=== PATIENT | female | born 1970 | race Caucasian/White ===

== ENCOUNTER 2019-03-28 10:41 | Emergency (ER) | payer BC, OTHER ==
[2019-03-28 11:32] LABS: Absolute Lymphocytes (CBC) 1.3 K/uL (0.7-4.9); Absolute Monocytes 0.5 K/uL (0.1-1.3); Basophils % 0.4 % (0-1.3); Eosinophils % 1.8 % (0-4.4); Hematocrit 41.2 % (36.0-45.0); Lymphocytes % 26.5 % (15.3-44.8); MPV 8.7 fL (7.6-11.3); Monocytes % 9.6 % (3.3-12.3); RBC Red Blood Cell Count 4.49 M/uL (3.86-4.86)
[2019-03-28 11:34] LABS: Protime INR 0.98
[2019-03-28] MEDS ORDERED: METOPROLOL TARTRATE 5 MG/5 ML INJ IV ONE (11:50)
[2019-03-28 11:54] LABS: ALT/SGPT 50 U/L (12-78); AST/SGOT 42 U/L (15-37); Alkaline Phosphatase 68 U/L (45-117); BUN Blood Urea Nitrogen 9 mg/dL (7-18); Bicarbonate 32 mmol/L (21-32); Bilirubin Direct 0.2 mg/dL (0-0.2); Bilirubin Total 0.6 mg/dL (0.2-1.0); Glucose Level 81 mg/dL (74-106); Magnesium 2.1 mg/dL (1.8-2.4); NT PRO-BNP 41 pg/mL (<125); Potassium 3.6 mmol/L (3.5-5.1); Protein, Total 7.6 g/dL (6.4-8.2); Sodium Level 143 mmol/L (136-145); Troponin (Emerg Dept Use Only) < 0.02 ng/mL (0.0-0.045)
[2019-03-28] MEDS ORDERED: ACETAMINOPHEN 500 MG TAB ONE (12:02)
--- NOTE | 2019-03-28 12:03 | RAD REPORT ---
EXAM DESCRIPTION: CT - Head Brain Wo Cont - 03/28/2019 11:57 am CLINICAL HISTORY: HEADACHE Headache, jaw pain COMPARISON: Abdomen W Contrast dated 03/30/2017Ct Stroke Brain Wo Cont dated 09/10/2016 TECHNIQUE: All CT scans are performed using dose optimization technique as appropriate and may inclu de automated exposure control or mA/KV adjustment according to patient size. FINDINGS: No intracranial hemorrhage, hydrocephalus or extra-axial fluid collection.No areas of brai n edema or evidence of midline shift. The paranasal sinuses and mastoids are clear. The calvarium is intact. IMPRESSION: No acute intracranial abnormality.
[2019-03-28] MEDS ORDERED: LORazepam 2 MG/ML VIAL ONE (13:53)
[2019-03-28] MEDS ORDERED: KETOROLAC 30 MG/ML INJ ONE (13:54)
--- NOTE | 2019-03-28 14:19 | ER ---
Nurse's Notes [facility] Name: Sonja Medellin Age: 49 yrs Sex: Female : 1970 Arrival Date: 03/28/2019 Time: 10:44 Bed 2 Private MD: Diagnosis: Headache;Anxiety disorder, unspecified;Atypical facial pain Presentation: 03/28 11:08 Presenting complaint: Patient states: started having a headache yesterday and it just tw2 wont go away, now i am having pressure and pain in my jaws, i am just worried i have had a stroke before. Transition of care: patient was not received from another setting of care. Onset of symptoms was March 28, 2019. Risk Assessment: Do you want to hurt yourself or someone else? Patient reports no desire to harm self or others. Initial Sepsis Screen: Does the patient meet any 2 criteria? No. Patient's initial sepsis screen is negative. Does the patient have a suspected source of infection? No. Patient's initial sepsis screen is negative. Care prior to arrival: None. 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 - Social history:: Smoking status: . - Ebola Screening: : Patient denies travel to an Ebola-affected area in the 21 days before illness onset. Screenin:12 Abuse screen: Denies threats or abuse. Nutritional screening: No deficits noted. tw2 Tuberculosis screening: No symptoms or risk factors identified. Fall Risk None identified. Assessment: 11:12 General: Appears in no apparent distress. well groomed, Behavior is anxious, crying. tw2 Pain: Complains of pain in headache and jaw pain. Neuro: Level of Consciousness is awake, alert, obeys commands, Oriented to person, place, time, situation. Neuro: Reports headache. Cardiovascular: Heart tones S1 S2 Capillary refill < 3 seconds Patient's skin is warm and dry. Respiratory: Airway is patent Respiratory effort is even, unlabored, Respiratory pattern is regular, symmetrical, Breath sounds are clear bilaterally. GI: No signs and/or symptoms were reported involving the gastrointestinal system. Abdomen is flat, Bowel sounds present X 4 quads. : No signs and/or symptoms were reported regarding the genitourinary system. EENT: No signs and/or symptoms were reported regarding the EENT system. Derm: No signs and/or symptoms reported regarding the dermatologic system. Musculoskeletal: Range of motion: intact in all extremities. 11:45 Reassessment: No changes from previously documented assessment. Patient and/or family tw2 updated on plan of care and expected duration. Pain level reassessed. pt requesting something for headache states Excedrin migraine did not help. 12:31 Reassessment: Patient appears in no apparent distress at this time. No changes from tw2 previously documented assessment. Patient and/or family updated on plan of care and expected duration. Pain level reassessed. 13:22 Reassessment: Patient appears in no apparent distress at this time. No changes from tw2 previously documented assessment. Patient and/or family updated on plan of care and expected duration. Pain level reassessed. Patient is alert, oriented x 3, equal unlabored respirations, skin warm/dry/pink. 14:21 Reassessment: Patient appears in no apparent distress at this time. No changes from tw2 previously documented assessment. Patient and/or family updated on plan of care and expected duration. Pain level reassessed. Patient is alert, oriented x 3, equal unlabored respirations, skin warm/dry/pink. Vital Signs: 11:09 BP 161 / 107; Pulse 107; Resp 19; Temp 97.9(O); Pulse Ox 98% on R/A; Weight 77.11 kg tw2 (R); Height 5 ft. 4 in. (162.56 cm); Pain 9/10; 11:45 BP 137 / 96; Pulse 80; Resp 15; Pulse Ox 98% on R/A; tw2 12:31 BP 120 / 83; Pulse 79; Resp 15; Pulse Ox 98% on R/A; tw2 13:22 BP 127 / 87; Pulse 73; Resp 15; Pulse Ox 97% on R/A; Pain 5/10; tw2 14:20 BP 130 / 91; Pulse 88; Resp 17; Pulse Ox 98% on R/A; tw2 11:09 Body Mass Index 29.18 (77.11 kg, 162.56 cm) tw2 ED Course: 10:44 Patient arrived in ED. rg4 10:59 Malachi Ghotra MD is Attending Physician. kdr 11:02 Anai Bridges RN is Primary Nurse. tw2 11:02 Placed in gown. Bed in low position. monitor and storage bin tender on. Pulse ox on. NIBP on. tw2 11:09 Triage completed. tw2 11:14 Arm band placed on. tw2 11:23 Initial lab(s) drawn, by me, sent to lab. Inserted saline lock: 20 gauge in right dh3 antecubital area, using aseptic technique. Blood collected. 11:39 EKG done, by predictive maintenance technician. reviewed by Malachi Ghotra MD. sm3 12:19 XRAY Chest (1 view) In Process Unspecified. EDMS 13:34 Troponin (Emerg Dept Use Only) Sent. tw2 14:32 No provider procedures requiring assistance completed. IV discontinued, intact, tw2 bleeding controlled, No redness/swelling at site. Pressure dressing applied. Administered Medications: 11:52 CANCELLED (pts condition): Lopressor 5 mg IVP once; Hold for SBP <100 or HR <60. tw2 11:54 Drug: Tylenol 1000 mg Route: PO; tw2 13:23 Follow up: Response: No adverse reaction; Pain is decreased tw2 13:45 Drug: Ativan 1 mg Route: IVP; Site: right forearm; tw2 14:33 Follow up: Response: No adverse reaction; Pain is decreased tw2 13:45 Drug: TORadol - Ketorolac 15 mg Route: IVP; Site: right forearm; tw2 14:33 Follow up: Response: No adverse reaction tw2 Outcome: 14:19 Discharge ordered by . kdr 14:32 Discharged to home ambulatory, with significant other. tw2 14:32 Condition: stable 14:32 Discharge instructions given to patient, significant other, Instructed on discharge instructions, follow up and referral plans. no drinking with medication, no driving heavy equipment, medication usage, Demonstrated understanding of instructions, follow-up care, medications, Prescriptions given X 2. 14:34 Patient left the ED. tw2 Signatures: Dispatcher [employer] EDMS Malachi Ghotra MD MD [facility] Anai Bridges RN RN tw2 Clover Bernabe 4 Emilia Naylor 3 Hailee Arroyo 3 Corrections: (The following items were deleted from the chart) 13:34 13:22 BP 127 / 87; Pulse 73bpm; Resp 15bpm; Pulse Ox 97% RA; tw2 tw2
--- NOTE | 2019-03-28 14:19 | EDPHYS ---
Physician Documentation [facility] Name: Sonja Medellin Age: 49 yrs Sex: Female : 1970 Arrival Date: 03/28/2019 Time: 10:44 Bed 2 Private MD: ED Physician Malachi Ghotra HPI: 03/28 12:13 This 49 yrs old Female presents to ER via Ambulatory with complaints of High kdr Blood Pressure \T\ WHITMAN. 12:20 The patient has had pain in her face and head since yesterday. She is concerned that kdr her BP is high and that she may have another stroke as she did about two years ago. She denies any other focal deficits . Onset: The symptoms/episode began/occurred gradually, yesterday. Severity of symptoms: At their worst the symptoms were moderate in the emergency department the symptoms are unchanged. The patient has not experienced similar symptoms in the past. The patient has not recently seen a physician. 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 - Social history:: Smoking status: . - Ebola Screening: : Patient denies travel to an Ebola-affected area in the 21 days before illness onset. ROS: 12:20 Constitutional: Negative for fever, chills, and weight loss, Eyes: Negative for injury, kdr pain, redness, and discharge, ENT: Negative for injury, pain, and discharge, Neck: Negative for injury, pain, and swelling, Respiratory: Negative for shortness of breath, cough, wheezing, and pleuritic chest pain, Abdomen/GI: Negative for abdominal pain, nausea, vomiting, diarrhea, and constipation, Back: Negative for injury and pain, : Negative for injury, bleeding, discharge, and swelling, MS/Extremity: Negative for injury and deformity, Skin: Negative for injury, rash, and discoloration, Psych: Negative for depression, anxiety, suicide ideation, homicidal ideation, and hallucinations, Allergy/Immunology: Negative for hives, rash, and allergies, Endocrine: Negative for neck swelling, polydipsia, polyuria, polyphagia, and marked weight changes, Hematologic/Lymphatic: Negative for swollen nodes, abnormal bleeding, and unusual bruising. 12:20 Cardiovascular: Positive for Negative for chest pain, edema, orthopnea, palpitations, paroxysmal nocturnal dyspnea, acute changes. 12:20 Neuro: Positive for headache, bilateral upper face and jaw pain. Exam: 12:20 Constitutional: This is a well developed, well nourished patient who is awake, alert, kdr and in no acute distress. Head/Face: Normocephalic, atraumatic. Eyes: Pupils equal round and reactive to light, extra-ocular motions intact. Lids and lashes normal. Conjunctiva and sclera are non-icteric and not injected. Cornea within normal limits. Periorbital areas with no swelling, redness, or edema. Neck: Trachea midline, no thyromegaly or masses palpated, and no cervical lymphadenopathy. Supple, full range of motion without nuchal rigidity, or vertebral point tenderness. No Meningismus. Chest/axilla: Normal chest wall appearance and motion. Nontender with no deformity. No lesions are appreciated. Cardiovascular: Regular rate and rhythm with a normal S1 and S2. No gallops, murmurs, or rubs. Normal PMI, no JVD. No pulse deficits. Respiratory: Lungs have equal breath sounds bilaterally, clear to auscultation and percussion. No rales, rhonchi or wheezes noted. No increased work of breathing, no retractions or nasal flaring. Abdomen/GI: Soft, non-tender, with normal bowel sounds. No distension or tympany. No guarding or rebound. No evidence of tenderness throughout. Back: No spinal tenderness. No costovertebral tenderness. Full range of motion. Skin: Warm, dry with normal turgor. Normal color with no rashes, no lesions, and no evidence of cellulitis. MS/ Extremity: Pulses equal, no cyanosis. Neurovascular intact. Full, normal range of motion. Neuro: Awake and alert, GCS 15, oriented to person, place, time, and situation. Cranial nerves II-XII grossly intact. Motor strength 5/5 in all extremities. Sensory grossly intact. Cerebellar exam normal. Normal gait. 12:20 Psych: Behavior/mood is cooperative, anxious, Affect is calm, Oriented to person, place, time, Patient has no thoughts/intents to harm self or others. Judgement / Insight is normal. Delusions/hallucinations are not present. Vital Signs: 11:09 BP 161 / 107; Pulse 107; Resp 19; Temp 97.9(O); Pulse Ox 98% on R/A; Weight 77.11 kg tw2 (R); Height 5 ft. 4 in. (162.56 cm); Pain 9/10; 11:45 BP 137 / 96; Pulse 80; Resp 15; Pulse Ox 98% on R/A; tw2 12:31 BP 120 / 83; Pulse 79; Resp 15; Pulse Ox 98% on R/A; tw2 13:22 BP 127 / 87; Pulse 73; Resp 15; Pulse Ox 97% on R/A; Pain 5/10; tw2 14:20 BP 130 / 91; Pulse 88; Resp 17; Pulse Ox 98% on R/A; tw2 11:09 Body Mass Index 29.18 (77.11 kg, 162.56 cm) tw2 MDM: 14:19 Patient medically screened. kdr 03/29 10:04 Data reviewed: vital signs, nurses notes, lab test result(s), radiologic studies. kdr Counseling: I had a detailed discussion with the patient and/or guardian regarding: the historical points, exam findings, and any diagnostic results supporting the discharge/admit diagnosis, lab results, radiology results. 03/28 11:05 Order name: Basic Metabolic Panel; Complete Time: 13:03/28 11:05 Order name: CBC with Diff; Complete Time: 13:03/28 11:05 Order name: LFT's; Complete Time: 13:03/28 11:05 Order name: Magnesium; Complete Time: 13:03/28 11:05 Order name: NT PRO-BNP; Complete Time: 13:03/28 11:05 Order name: PT-INR; Complete Time: 13:03/28 11:05 Order name: Troponin (emerg Dept Use Only); Complete Time: 13:03/28 11:05 Order name: XRAY Chest (1 view) 03/28 11:15 Order name: CT Head Brain wo Cont kdr 03/28 12:46 Order name: CT; Complete Time: 13:01 EDMS 03/28 13:06 Order name: Troponin (emerg Dept Use Only) kdr 03/28 13:08 Order name: Troponin (Emerg Dept Use Only); Complete Time: 14:17 EDMS 03/28 11:05 Order name: EKG; Complete Time: 11: 03/28 11:05 Order name: Cardiac monitoring; Complete Time: : 03/28 11:05 Order name: EKG - Nurse/Tech; Complete Time: : 03/28 11:05 Order name: IV Saline Lock; Complete Time: 03/28 11:05 Order name: Labs collected and sent; Complete Time: 03/28 11:05 Order name: O2 Per Protocol; Complete Time: : 03/28 11:05 Order name: O2 Sat Monitoring; Complete Time: sg Administered Medications: 03/28 11:52 CANCELLED (pts condition): Lopressor 5 mg IVP once; Hold for SBP <100 or HR <60. tw2 11:54 Drug: Tylenol 1000 mg Route: PO; tw2 13:23 Follow up: Response: No adverse reaction; Pain is decreased tw2 13:45 Drug: Ativan 1 mg Route: IVP; Site: right forearm; tw2 14:33 Follow up: Response: No adverse reaction; Pain is decreased tw2 13:45 Drug: TORadol - Ketorolac 15 mg Route: IVP; Site: right forearm; tw2 14:33 Follow up: Response: No adverse reaction tw2 Disposition: 03/28/19 14:19 Discharged to Home. Impression: Headache, Anxiety disorder, unspecified, Atypical facial pain. - Condition is Stable. - Discharge Instructions: General Headache Without Cause, Temporomandibular Joint Syndrome. - Prescriptions for Ativan 1 mg Oral Tablet - take 1 tablet by ORAL route every 8 hours As needed; 10 tablet. Tramadol 50 mg Oral Tablet - take 1 tablet by ORAL route every 8 hours as needed; 12 tablet. - Medication Reconciliation Form, Thank You Letter, Prescription Opioid Use form. - Follow up: Private Physician; When: 2 - 3 days; Reason: If symptoms return, Further diagnostic work-up, Recheck today's complaints, Continuance of care, Re-evaluation by your physician. - Problem is an acute exacerbation. - Symptoms have improved. Signatures: Dispatcher [employer] EDRamos De Luna, RN RN Malachi Ghotra MD MD kdr Anai Bridges RN RN tw2 Corrections: (The following items were deleted from the chart) 11:52 11:15 Lopressor 5 mg IVP once; Hold for SBP <100 or HR <60. ordered. kdr tw2 14:34 14:19 03/28/2019 14:19 Discharged to Home. Impression: Headache; Anxiety disorder, tw2 unspecified; Atypical facial pain. Condition is Stable. Forms are Medication Reconciliation Form, Thank You Letter, Antibiotic Education, Prescription Opioid Use. Follow up: Private Physician; When: 2 - 3 days; Reason: If symptoms return, Further diagnostic work-up, Recheck today's complaints, Continuance of care, Re-evaluation by your physician. Problem is an acute exacerbation. Symptoms have improved. kdr
--- NOTE | 2019-03-28 14:29 | EKG ---
Test Date: 2019-03-28 Test Time: 11:21:35 Impregnating Tank Operator: HARRIS MEASUREMENT RESULTS: Intervals: Rate: 82 CA: 138 QRSD: 92 QT: 382 QTc: 446 [place]: P: 72 CA: 138 QRS: 51 T: 67 INTERPRETIVE STATEMENTS: Normal sinus rhythm Normal ECG Compared to ECG 09/10/2016 09:54:03 No significant changes Electronically Signed On 03-28-19 14:28:47 CDT by Kam Diego
--- OUTSIDE RECORDS SUMMARY | 2019-03-28 14:53 | XMS REPORT | Summary of Care ---
:1970 Author Name QUENTIN BURGOS M.D. Address Unavailable Unavailable , Care Team Providers Name Role Phone HODA Boswell, NU Pineda Unavailable AUBREY Boswell, QUENTIN Unavailable Unavailable Sangita Rich LVN Unavailable Unavailable HODA HAMM [place], NU Willingham Unavailable Unavailable Unavailable Unavailable Unavailable Functional Status Name Dates Details Functional status health issues are not documented Status: Name Dates Details Cognitive status health issues are not documented Status: Problems Name Dates Details Encounter for gynecological examination with Papanicolaou smear of cervix ( V72.31, Z01.419) Status: Active Encounter for annual routine gynecological examination (V72.31, Z01.419) Status: Active Menopausal symptoms (627.2, N95.1) Status: Active Visit for screening mammogram (V76.12, Z12.31) Status: Active Abnormal laboratory test (796.4, R89.9) Status: Active Abnormal thyroid function test (794.5, R94.6) Status: Active Hair loss (704.00, L65.9) Status: Active Hypertension (401.9, I10) Status: Active Abnormal mammogram (793.80, R92.8) Status: Active Juve's thyroiditis (245.2, E06.3) Status: Active 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 Start : 21-Oct-2016 Active Aspirin Adult Low Dose 81 MG Oral Tablet Delayed Release TAKE 1 TABLET DAILY. Refills: 0 Start : 21-Oct-2016 Active Amitriptyline HCl - 25 MG Oral Tablet TAKE 1 TABLET DAILY Refills: 0 Active Atenolol 50 MG Oral Tablet TAKE 1 TABLET DAILY. Quantity: 90 Refills: 3 HODA CaronZaBenja Levothyroxine Sodium 50 MCG Oral Tablet TAKE 1 TABLET BY MOUTH DAILY Quantity: 90 Refills: 3 AUBREY BoswellQUENTIN Start : 03-Jan-2018 Active Allergies and Adverse Reactions Name Dates Details No Known Drug Allergies (Allergy) Status: Active Past Medical History Name Dates Details History of hyperlipidemia (V12.29, Z86.39) Status: Resolved Procedures Procedure Dates Details [QL] ANTIPHOSPHOLIPID ANTIBODY PANEL Date: 02-Jan-2018 [QLH] TSH, 3RD GENERATION W/REFLEX TO FT4 Date: 03-Jan-2018 [place] Breast mammogram bilateral [id number] Date: 02-Jan-2018 Liver [id number] Date: 02-Jan-2018 [place] Digital Mammo DX Sean w francisco [id number] Date: 02-Jan-2018 History of Section Completed History of Hysterectomy Completed History of Cholecystectomy Completed Immunization Name Dates Details Immunizations not documented Family History Name Dates Details Family history of hypertension (V17.49, Z82.49) Comments: Other Status: Active Family history of diabetes mellitus (V18.0, Z83.3) Comments: Other Status: Active Family history of Alzheimer's disease (V17.2, Z82.0) Comments: Other Status: Active Name Dates Details Family history of Status: Active Family history of cardiac disorder (V17.49, Z82.49) Status: Active Name Dates Details Family history of Status: Active Family history of cardiac disorder (V17.49, Z82.49) Status: Active Name Dates Details Family history of Healthy adult Status: Active Social History Name Dates Details - Status: Name Dates Details Never smoker Never smoker Vital Signs Date Test Result Details No Known Vitals to report Results Date Description Value Details [id number] US Liver [id number] Liver US SEE NOTES Comments: EXAM: US ABDOMEN LIMITEDDATE: 01/08/2018 2:14 PM CDTINDICATION: - R89.9 Unspecified abnormal finding in specimens from otherorgans, systems and tissuesADDITIONAL INFORMATION: None.COMPARISON: None.KACY HNIQUE: Multiplanar grayscale and color Doppler ultrasound of the rightupper quadrant. FINDINGS:Liver:Craniocaudal length: 15 cm.Echogenicity: Normal.Surface: Normal.Mass (size and location): None.Zita n portal vein:Caliber: 1.2 cm.Flow: Hepatopetal.Bile ducts:Common bile duct diameter: 0.2 cm.Intrahepatic ducts: Normal.Gallbladder: Status post cholecystectomy.Pancreas:Head and uncinate process: Not seen.Body: Normal.Tail: Not seen.Free fluid: None.Other: None.IMPRESSION :1. No acute or significant sonographic abnormalities in the visualizedabdomen.2. Status post cholecystectomy.--Read by: Joy Stylesictated Date/time: 01/08/18 14:31Electronically Signed by: Joy Jimenez MD 01/08/1814:44FINAL REPORT Plan of Care Name Dates Details Planned Observations Planned Goals not documented Interventions Provided Medication ChangesAtorvastatin Calcium 40 MG Oral Tablet - Renew Instructions Name Dates Details Instructions not documented Encounters Appointment; ROSANA PERES M.D. On: 21-Oct-2016 8:30 Encounter Diagnosis: Problem not documented Appointment; MIKE FINLEY M.D. On: 03-Nov-2016 14:30 Encounter Diagnosis: Problem not documented Appointment; NU DRUMMOND M.D. On: 30-Nov-2016 9:20 Encounter Diagnosis: Problem not documented Appointment; ANDRÉS DE SOUZA M.D. On: 27-Dec-2016 10:00 Encounter Diagnosis: Problem not documented Appointment; NU DRUMMOND M.D. On: 08-Feb-2017 10:00 Encounter Diagnosis: Problem not documented Appointment; PAUL PIKE On: 15-Feb-2017 9:00 Encounter Diagnosis: Problem not documented Appointment; NU DRUMMOND M.D. On: 15-Feb-2017 9:50 Encounter Diagnosis: Problem not documented Appointment; ESPERANZA THOMAS M.D. On: 08-Jun-2017 13:15 Encounter Diagnosis: Problem not documented Appointment; PAUL PIKE On: 23-Aug-2017 9:00 Encounter Diagnosis: Problem not documented Appointment; NU DRUMMOND M.D. On: 23-Aug-2017 10:00 Encounter Diagnosis: Problem not documented Appointment; QUENTIN BURGOS M.D. On: 02-Jan-2018 9:00 Encounter Diagnosis: Problem not documented Appointment; ROSANA PERES M.D. On: 02-Jan-2018 14:30 Encounter Diagnosis: Problem not documented
--- NOTE | 2019-03-28 15:43 | RAD REPORT ---
EXAM DESCRIPTION: RAD - Chest Single View - 03/28/2019 11:50 am CLINICAL HISTORY: High BP, Chest Discomfort Chest pain. COMPARISON: Chest Single View dated 09/10/2016 FINDINGS: Portable technique limits examination quality. The lungs are grossly clear. The heart is normal in size. No displaced fractures. IMPRESSION: No acute intrathoracic process suspected.
== END 2019-03-28 14:34 | disposition home or self-care (01) ==
LOC: ER 10:41
DX: F41.9 Anxiety disorder, unspecified (principal); G50.1 Atypical facial pain
CPT/HCPCS: 36415; 70450; 71045; 80048; 80076; 83735; 83880; 84484; 85025; 85610; 93005; 96374; 96375; 99285

== ENCOUNTER 2020-11-20 22:25 | Emergency (ER) | payer OTHER ==
--- OUTSIDE RECORDS SUMMARY | 2020-11-20 22:29 | XMS REPORT | Continuity of Care Document ---
:1970 Author Organization [facility] t Address [address] [place] [address] Care Team Providers Name Role Phone LARISA Attending Clinician Unavailable AUBREY Attending Clinician Unavailable HODA Attending Clinician Unavailable SHAHZAD Attending Clinician Unavailable WILLIAM Attending Clinician Unavailable AP Attending Clinician Unavailable MALIA Attending Clinician Unavailable Problems Condition Condition Condition Status Onset Resolution Last Treating Co mments Source Name Details Category Date Date Treatment Clinician Date History of History of Problem Resolve Univers hyperlipid hyperlipid HL7.CCDAR2 d ity of emia emia [place] Phys[facility] ans Chronic Chronic Problem Active Univers arterial arterial HL7.CCDAR2 it y of ischemic ischemic [place] stroke stroke Physici ans Dyslipidem Dyslipidem Problem Active U nivers ia (high ia (high HL7.CCDAR2 it y of LDL; low LDL; low [place] HDL) HDL) Physici ans Cryptogeni Cryptogeni Problem Active U nivers c stroke c stroke HL7.CCDAR2 it y of [place] Physici ans Encounter Encounter Problem Active Uni vers for annual for annual HL7.CCDAR2 ity of routine routine [place] gynecologi gynecologi Ph ysici doris doris ans examinatio examinatio n n Weight Weight Problem Active Univers gain gain HL7.CCDAR2 ity of [place] [facility] Hair loss Hair loss Problem Active Uni vers HL7.CCDAR2 ity of [place] Physici ans Fatigue Fatigue Problem Active Univers HL7.CCDAR2 ity of [place] [facility] ans Menopausal Menopausal Problem Active U nivers symptoms symptoms HL7.CCDAR2 it y of [place] [facility] Visit for Visit for Problem Active Uni vers screening screening HL7.CCDAR2 [place] Abnormal Abnormal Problem Active Unive rs mammogram mammogram HL7.CCDAR2 ity of [place] Physici ans PFO PFO Problem Active Univers (patent (patent HL7.CCDAR2 ity of foramen foramen [place] ovale) ovale) Physici ans Hypertensi Hypertensi Problem Active U nivers on on HL7.CCDAR2 ity of [place] Physici ans Abnormal Abnormal Problem Active Unive rs laboratory laboratory HL7.CCDAR2 ity of test test [place] Physici ans Abnormal Abnormal Problem Active Unive rs thyroid thyroid HL7.CCDAR2 ity of function function [place] test test Physici ans Juve' Juve' Problem Active U nivers s s HL7.CCDAR2 [place] thyroid[place] thyroid[place] Allergies, Adverse Reactions, Alerts This patient has no known allergies or adverse reactions. Family History Family Member Diagnosis Comments Start Date Stop Date Source Unknown Family Family history of Other Uni versity of Member hypertension [place] Physic ians Unknown Family Family history of Other Uni versity of Member Alzheimer's disease [place] [facility] Unknown Family Family history of Other Uni versity of Member diabetes mellitus [place] P hysicians Mother Family history of Univers ity of [place] [facility] ns Mother Family history of Univers ity of cardiac disorder [place] [facility] Father Family history of Univers ity of [place] [facility] ns Father Family history of Univers ity of cardiac disorder [place] [facility] Brother Family history of Univers ity of Healthy adult [place] Physi cians Social History Smoking Status Start Date Stop Date Source Never smoker [facility] Physicians Medications Ordered Filled Start Stop Current Ordering Indication Dosage Frequency Signature Comments Components Source Medication Medication Date Date Medication? Clinician (SIG) Name Name Levothyroxi Levothyroxi 0 Yes QUENTIN TAKE 1 Univers ne Sodium ne Sodium 3-07 SWAILS TABLET BY ity of 50 MCG Oral 50 MCG Oral 00:00: M.D. MOUTH [place] Tablet Tablet 00 DAILY Physici ans Aspirin Aspirin 2015-10 Yes 1 QD TAKE 1 Unive rs Adult Low Adult Low 2-23 TABLET ity of Dose 81 MG Dose 81 MG 00:00: DAILY. [place] Oral Tablet Oral Tablet 00 P hysici Delayed Delayed ans Release Release Atorvastati Atorvastati 2015-10 Yes QUENTIN TAKE 1 Univers n Calcium n Calcium 2-23 SWAILS TABLET BY ity of 40 MG Oral 40 MG Oral 00:00: M.D. MOUTH AT [place] Tablet Tablet 00 BEDTIME Physici ans Amitriptyli Amitriptyli Yes 1 QD TAKE 1 Univers ne HCl - 25 ne HCl - 25 TABLET ity of MG Oral MG Oral DAILY [place] Tablet Tablet Physici ans Atenolol 50 Atenolol 50 Yes NU 1 QD TAKE 1 Univers MG Oral MG Oral HODA TABLET ity of Tablet Tablet M.D. DAILY. Kar[place] Physici ans Vital Signs Vital Name Observation Time Observation Value Comments Source BP Systolic 2018-01-02 106 mm[Hg] Location: [facility] 15:00:00 [place] Physician s BP Diastolic 2018-01-02 75 mm[Hg] Location: [facility] 15:00:00 [place] Physician s Height 2018-01-02 64 [in_us] [facility] 15:00:00 [place] Physician s Body Mass Index 2018-01-02 30.9 kg/m2 University o f Calculated 15:00:00 [place] Physician s Weight 2018-01-02 180 [lb_av] [facility] 15:00:00 [place] Physician s Heart Rate 2018-01-02 75 /min Location: [facility] 15:00:00 Brachial [place] Physician s Artery; BP Systolic 2018-01-02 105 mm[Hg] Location: [facility] 09:13:00 Position: [place] Physician s Sitting BP Diastolic 2018-01-02 75 mm[Hg] Location: [facility] 09:13:00 Position: [place] Physician s Sitting Height 2018-01-02 64 [in_us] [facility] 09:13:00 [place] Physician s Weight 2018-01-02 180.6 [lb_av] [facility] 09:13:00 [place] Physician s Body Mass Index 2018-01-02 31 kg/m2 University o f Calculated 09:13:00 [place] Physician s Temperature 2018-01-02 97.7 [degF] Method: Oral University 09:13:00 [place] Physician s Heart Rate 2018-01-02 70 /min [facility] 09:13:00 [place] Physician s Procedures Procedure Date / Time Performing Clinician Source Performed [QLH] TSH, 3RD GENERATION 2018-01-03 00:00:00 Un [facility]ity of [place] W/REFLEX TO FT4 Physicians [QLH] TSH, 3RD GENERATION 2018-01-02 00:00:00 Un iversity of [place] W/REFLEX TO FT4 Physicians [QLH] THYROID PEROXIDASE 2018-01-02 00:00:00 Uni vers[facility] [place] ANTIBODIES Physicians [QLH] HEPATITIS PANEL 2018-01-02 00:00:00 [facility] [place]icians [place] Liver [id number] 2018-01-02 00:00:00 [facility] Physicians [place] Digital Mammo DX Sean w 2018-01-02 00:00:00 U [facility] francisco [id number] Physicians [place] Breast mammogram 2018-01-02 00:00:00 [facility] bilateral [id number] Physicians [QLH] PROTHROMBIN TIME-INR 2018-01-02 00:00:00 U [facility] Physicians [QL] ANTIPHOSPHOLIPID 2018-01-02 00:00:00 [facility] ANTIBODY PANEL Physicians History of [facility] Section Physicians History of Hysterectomy [facility] Physicians History of Cholecystectomy [facility] Physicians Plan of Care Planned Activity Planned Date Details Comments Source Diagnostic Test 2018-02-27 [QL] TSH, 3RD [facility] Pending 00:00:00 GENERATION W/REFLEX Physicia ns TO FT4 [code = [QL] TSH, 3RD GENERATION W/REFLEX TO FT4] Encounters Start End Encounter Admission Attending Care Care Encounter Source Date/Time Date/Time Type Type Clinicians Facility Department ID 2018-01-02 2018-01-02 Thai PERES [facility] Neurology [id number] Univers 14:30:00 14:30:00 t; Blade WAYNE M.D. [place] Juan WAYNE M.D. ans 2018-01-02 2018-01-02 AppointLIZZIE [place] [facility] [id number] Univers 09:00:00 09:00:00 t; QUENTIN BURGOS, Medicine itElbert Cristobal M.D. Physici ans 2017-08-23 2017-08-23 Appointelgin [facility] [id number] Univers 10:00:00 10:00:00 t; terell JUDGE M.D. [place] Juan JUDGE M.D. ans 2017-08-23 2017-08-23 Appointelgin [facility] [id number] Univers 09:00:00 09:00:00 t; [facility] 2017-06-08 2017-06-08 AppointLIZZIE Mora [facility] [id number] Univers 13:15:00 13:15:00 t; ESPERANZA THOMAS M.D. i ty of [place] MATA M.D. Physici ans 2017-02-15 2017-02-[facility] UTP [id number] Univers 09:50:00 09:50:00 t; terell JUDGE M.D. [place] RICHARD, Physici M.D. ans 2017-02-15 2017-02-15 Appointmen SHAHZAD, [facility] UTP [id number] Univers 09:00:00 09:00:00 t; PAUL PIKE itlisseth of ECHOII [place] Physici ans 2017-02-08 2017-02-08 Appointmen HODA, [facility] UTP [id number] Univers 10:00:00 10:00:00 t; terell JUDGE M.D. [place] RICHARD, Physici M.D. ans 2016-12-27 2016-12-27 Appointmen AP, [facility] UTP [id number] Univers 10:00:00 10:00:00 t; ANDRÉS DE SOUZA, i ty of Elbert BOWEN M.D. Physici ans 2016-11-30 2016-11-30 [facility] UTP [id number] Univers 09:20:00 09:20:00 t; terell JUDGE M.D. [place] RICHARD, Physici M.D. ans 2016-11-03 2016-11-03 [facility] MALIA, [facility] UTP [id number] Univers 14:30:00 14:30:00 t; Alexandra MCKEON M.D. [place] Juan MCKEON M.D. ans 2016-10-21 2016-10-21 Appointmen LARISA, [facility] UTP [id number] Univers 08:30:00 08:30:00 t; Blade WAYNE M.D. [place] Juan WAYNE M.D. ans Results Test Description Test Time Test Comments Results Result [place] [id number] 2017-12-28 EXAM: US ABDOMEN Univ ersity of 2 LIMITEDDATE: [place] 14:15:00 01/08/2018 2:14 PM Physici ans CDTINDICATION: - R89.9 Unspecified abnormal finding in specimens from otherorgans, systems and tissuesADDITIONAL INFORMATION: None.COMPARISON: None.TECHNIQUE: Multiplanar grayscale and color Doppler ultrasound of the rightupper quadrant. FINDINGS:Liver:Crani ocaudal length: 15 cm.Echogenicity: Normal.Surface: Normal.Mass (size and location): None.Main portal vein:Caliber: 1.2 cm.Flow: Hepatopetal.Bile ducts:Common bile duct diameter: 0.2 cm.Intrahepatic ducts: Normal.Gallbladder: Status post cholecystectomy.Pancr eas:Head and uncinate process: Not seen.Body: Normal.Tail: Not seen.Free fluid: None.Other: None.IMPRESSION:1. No acute or significant sonographic abnormalities in the visualizedabdomen.2. Status post cholecystectomy.--Hermila d by: Joy Jimenez MDDictated Date/time: 01/08/18 14:31Electronically Signed by: Joy Jimenez MD 01/08/1814:44FINAL REPORT Tobacco Use Screening 2018-01-02 20:30:00 Test Item Value Reference Range Interpretation Comme nts Completed (test code = Completed) DONE [facility] Physicians[[facility]] TSH, 3RD GENERATION W/REFLEX TO FT4 2018-01-02 10:46:01 Test Item Value Reference Range Interpretation Comments TSH; Above High Threshold 4.710 {uIU/ml} 0.360-3.740 (test code = 51934-3) TSH; Above High Threshold 4.710 {uIU/ml} 0.360-3.740 (test code = 54469-9) [facility] Physicians[[facility]] T4, [id number] 10:46:01 Test Item Value Reference Range Interpretation Comments T4 Free (test code = 3024-7) 0.95 ng/dl 0.76-1.46 [facility]] PROTHROMBIN [id number] 10:46:01 Test Item Value Reference Range Interpretation Comments PT (test code = 14.4 {sec} 12.0-14.7 5902-2) International 1.12 0.85-1.17 RECOMMENDED RA NGES FOR Normalization Ratio PROTIME INR: 2.0-3.0 (test code = 6301-6) for mos t medical and surgical thromboembolic states. 2.5-3.5 for artificial hear t valves and recu rrent embolism.INR SH OULD BE USED ONLY FOR P ATIENTS ON STABLE ANTICOAGULANT T HERAPY. [facility]] THYROID PEROXIDASE [id number] 10:46:01 Test Item Value Reference Range Interpretation Comments Thyroid Peroxidase (TPO) 1061 {IU/ml} <=60 Antibody; Above High Threshold (test code = 98305-1) [facility]] HEPATITIS [id number] 10:46:01 Test Item Value Reference Range Interpretation Comments Hepatitis B Surface Antigen (test Negative Negative code = 5195-3) Hepatitis C Antibody (test code = Negative 38236-8) Hepatitis B Core IgM (test code = Negative Negative 10684-8) Hepatitis A IgM (test code = Negative Negative 90623-8) Hepatitis B Core IgM (test code = Negative Negative 60712-0) [facility]] CARDIOLIPIN AB (IGA,IGG,IGM)2018-01-02 10:46:01 Test Item Value Reference Range Interpretation Comments Cardiolipin Antibody IgA (test <0.5 <=19.9 code = 5076-5) Cardiolipin Antibody IgG (test <1.6 <=19.9 code = 3181-5) Cardiolipin Antibody IgM (test 1.0 {MPL-U/mL} <=19.9 code = 3182-3) [facility][] Adlh-8-Qozox IgG/IgA/ [id number] 10:46:01 Test Item Value Reference Range Interpretation Comments Beta 2 Clycoprotein 1 Antibody IgA <0.6 <=19.9 (test code = 74670-6) Beta 2 Glycoprotein 1 Antibody IgG <1.4 <=19.9 (test code = 63653-4) Beta 2 Glycoprotein 1 Antibody IgM 1.7 U/ml <=19.9 (test code = 16039-0) [facility][] Phosphatidylserine [id number] 10:46:01 Test Item Value Reference Range Interpretation Comments Phosphatidylserine Antibody 1 {APS} 0-20 IgA (test code = Phosphatidylserine Antibody IgA) Phosphatidylserine Antibody 6 {GPS} 0-11 Performed At: IgG (test code = [facility] Phosphatidylserine Antibody [place] [address] IgG) [place], [place] [id number] k Tyson Linton MD Ph:[phone] Phosphatidylserine Antibody 5 {MPS} 0-25 IgM (test code = Phosphatidylserine Antibody IgM) [facility]
[2020-11-20] MEDS ORDERED: LIDOCAINE VISCOUS 2% SOLN 15 ML UDC ONE (23:02)
[2020-11-20] MEDS ORDERED: MAGNES/ALUMIN/SIMET 30ML UCUP ONE (23:02)
[2020-11-20] MEDS ORDERED: FAMOTIDINE 20 MG/2 ML VIAL IV ONE (23:02)
[2020-11-20] MEDS ORDERED: ONDANSETRON 4 MG/2 ML VIAL ONE (23:02)
[2020-11-20] MEDS ORDERED: NA CHLORIDE 0.9% 1,000 ML ONE (23:02)
[2020-11-20 23:20] LABS: Absolute Lymphocytes (CBC) 1.7 K/uL (0.7-4.9); Basophils % 0.2 % (0-1.3); Hematocrit 36.6 % (36.0-45.0); Lymphocytes % 26.5 % (15.3-44.8); MPV 8.5 fL (7.6-11.3); RBC Red Blood Cell Count 4.08 M/uL (3.86-4.86)
[2020-11-20 23:32] LABS: ALT/SGPT 24 U/L (12-78); AST/SGOT 23 U/L (15-37); Albumin 3.7 g/dL (3.4-5.0); Alkaline Phosphatase 73 U/L (45-117); BUN Blood Urea Nitrogen 13 mg/dL (7-18); Bicarbonate 24 mmol/L (21-32); Bilirubin Direct 0.1 mg/dL (0-0.2); Bilirubin Total 0.6 mg/dL (0.2-1.0); Glucose Level 103 mg/dL (74-106); Lipase 117 U/L (73-393); Potassium 3.1 mmol/L (3.5-5.1); Protein, Total 7.3 g/dL (6.4-8.2); Sodium Level 138 mmol/L (136-145); Troponin I < 0.02 ng/mL (0.0-0.045)
[2020-11-21] MEDS ORDERED: MORPHINE 2 MG/ML SYR ONE (00:02)
[2020-11-21] MEDS ORDERED: ONDANSETRON 4 MG/2 ML VIAL ONE (01:10)
--- NOTE | 2020-11-21 03:21 | EDPHYS ---
Physician Documentation [facility] Name: Sonja Medellin Age: 50 yrs Sex: Female : 1970 Arrival Date: 11/20/2020 Time: 22:33 Bed 16 Private MD: ED Physician Manjinder Hester HPI: 11/20 23:00 This 50 yrs old Female presents to ER via EMS with complaints of Abdominal cp Pain. 23:00 The patient presents with abdominal pain in the epigastric area. Onset: The cp symptoms/episode began/occurred suddenly, today. The symptoms radiate to back. Associated signs and symptoms: Pertinent positives: nausea, Pertinent negatives: constipation, diarrhea, vomiting. The symptoms are described as intermittent, sharp. Severity of pain: in the emergency department the pain has improved mildly. Historical: - Allergies: 22:38 No Known Allergies; mg2 - Home Meds: 22:38 Lipitor 40 mg Oral tab 1 tab once daily [Active]; Atenolol Oral [Active]; mg2 - PMHx: 22:38 Anxiety; CVA; Depression; Hyperlipidemia; mg2 - PSHx: 22:38 Hysterectomy; Cholecystectomy; mg2 - Immunization history:: Flu vaccine status is unknown. - Social history:: Smoking status: Patient denies any tobacco usage or history of. Patient/guardian denies using alcohol, street drugs, IV drugs. ROS: 23:05 Constitutional: Negative for body aches, chills, fever, poor PO intake. cp 23:05 Eyes: Negative for injury, pain, redness, and discharge. cp 23:05 ENT: Negative for ear pain, sore throat, difficulty swallowing, difficulty handling secretions. 23:05 Cardiovascular: Negative for chest pain, edema, palpitations. 23:05 Respiratory: Negative for cough, shortness of breath, wheezing. 23:05 Abdomen/GI: Positive for abdominal pain, nausea, Negative for vomiting, diarrhea, constipation, dysphagia. 23:05 Back: Positive for radiated pain. 23:05 Neuro: Negative for altered mental status, headache, weakness. 23:05 All other systems are negative. Exam: 23:10 Head/Face: Normocephalic, atraumatic. cp 23:10 Constitutional: The patient appears in no acute distress, alert, awake, non-diaphoretic, non-toxic, well developed, well nourished. 23:10 Eyes: Periorbital structures: appear normal, Conjunctiva: normal, no exudate, no cp injection, Sclera: no appreciated abnormality, Lids and lashes: appear normal, bilaterally. 23:10 ENT: External ear(s): are unremarkable, Nose: is normal, Posterior pharynx: Airway: no evidence of obstruction, patent. 23:10 Chest/axilla: Inspection: normal, Palpation: is normal, no crepitus, no tenderness. 23:10 Cardiovascular: Rate: normal, Rhythm: regular. 23:10 Respiratory: the patient does not display signs of respiratory distress, Respirations: normal, no use of accessory muscles, no retractions, labored breathing, is not present, Breath sounds: are clear throughout, no decreased breath sounds, no stridor, no wheezing. 23:10 Abdomen/GI: Inspection: abdomen appears normal, Bowel sounds: active, all quadrants, Palpation: soft, in all quadrants, moderate abdominal tenderness, in the epigastric area, rebound tenderness, is not appreciated, involuntary guarding, is not appreciated. 23:10 Back: CVA tenderness, is absent. 23:10 Neuro: Orientation: to person, place \T\ time. Mentation: is normal, Motor: moves all fours, strength is normal, Sensation: is normal. Vital Signs: 22:33 BP 103 / 66; Pulse 91; Resp 18; Temp 97.1; Pulse Ox 98% on R/A; Weight 86.18 kg; Height mg2 5 ft. 4 in. (162.56 cm); Pain 9/10; 23:35 BP 128 / 76; Pulse 75; Resp 16; Pulse Ox 98% on R/A; jb4 11/21 00:30 BP 127 / 86; Pulse 88; Resp 18; Pulse Ox 100% on R/A; jb4 01:28 BP 108 / 74; Pulse 89; Resp 16; Pulse Ox 97% on R/A; jb4 02:00 BP 98 / 66; Pulse 93; Resp 16; Pulse Ox 97% on R/A; Pain 0/10; jb4 03:00 BP 104 / 78; Pulse 88; Resp 16; Pulse Ox 95% on R/A; jb4 11/20 22:33 Body Mass Index 32.61 (86.18 kg, 162.56 cm) mg2 MDM: 11/20 22:43 Patient medically screened. cp 11/21 01:00 Data reviewed: vital signs, nurses notes, lab test result(s), EKG, radiologic studies, cp plain films. 01:00 Differential diagnosis: AAA, gastritis, pancreatitis, Peptic Ulcer Disease, Perf. cp Duodenal Ulcer, Perf. Gastric Ulcer, Pyelonephritis, Ureterolithiasis, urinary tract infection, choledocholithiasis. Transition of care: After a detail discussion of the patient's case, care is transferred to Manjinder Hester MD. 11/20 22:43 Order name: Basic Metabolic Panel; Complete Time: 23:36 cp 11/20 23:36 Interpretation: Normal except: K 3.1. cp 11/20 22:43 Order name: CBC with Diff; Complete Time: 23:36 cp 11/20 22:43 Order name: Hepatic Function; Complete Time: 23:36 cp 11/20 22:43 Order name: Lipase; Complete Time: 23:36 cp 11/20 22:43 Order name: Troponin I; Complete Time: 23:36 cp 11/20 23:22 Order name: XRAY Chest (1 view) 11/20 22:43 Order name: EKG; Complete Time: 22:44 cp 11/20 23:37 Order name: CT Aorta for Dissection 11/20 22:43 Order name: IV Saline Lock; Complete Time: 22:49 cp 11/20 22:43 Order name: Labs collected and sent; Complete Time: 22:51 cp 11/20 22:43 Order name: EKG - Nurse/Tech; Complete Time: 23:06 cp Administered Medications: 11/20 22:50 Drug: NS 0.9% 1000 ml Route: IV; Rate: 1 bolus; Site: right antecubital; jb4 11/21 00:00 Follow up: Response: No adverse reaction; IV Status: Completed infusion; IV Intake: jb4 1000ml 11/20 22:51 Drug: Zofran (Ondansetron) 4 mg Route: IVP; Site: right antecubital; jb4 23:20 Follow up: Response: No adverse reaction; Nausea is decreased jb4 22:51 Drug: Pepcid 20 mg Route: IVP; Site: right antecubital; jb4 23:20 Follow up: Response: No adverse reaction jb4 22:53 Drug: GI Cocktail without - (Maalox Suspension 30 ml, Lidocaine Liquid 2 % 15 jb4 ml) Route: PO; 23:20 Follow up: Response: No adverse reaction; Pain is decreased jb4 11/21 01:00 Drug: Zofran (Ondansetron) 4 mg Route: IVP; Site: right antecubital; mg2 01:28 Follow up: Response: No adverse reaction; Marked relief of symptoms; Nausea is decreasedjb4 01:27 Not Given (Patient Refused): morphine 2 mg IVP once; (PAIN>8) RASS on ADMN: Combtv4, jb4 Very Agttd3, Agttd2, Rstlss1, AlertClm0, Drwsy-1, LtSdtn-2, ModSdtn-3, DpSdtn-4, UnArsble-5 x2 Disposition: 06:07 Co-signature as Attending Physician, Manjinder Hester MD. [email or web address] Disposition: 11/21/20 03:20 Discharged to Home. Impression: Upper abdominal pain, unspecified, Coronavirus infection, unspecified. - Condition is Stable. - Discharge Instructions: Abdominal Pain, Adult, Rjrn-xi-Lyyk, Viral Respiratory Infection, Igau-Pv-Naqw, COVID-19. - Prescriptions for Zofran ODT 4 mg Oral tablet,disintegrating - place 1 tablet by TRANSLINGUAL route every 8 hours As needed; 6 tablet. Bentyl 20 mg Oral Tablet - take 1 tablet by ORAL route every 6 hours As needed; 20 tablet. Pepcid 20 mg Oral Tablet - take 1 tablet by ORAL route every 12 hours for 5 days; 10 tablet. Zithromax Z- Harley 250 mg Oral Tablet - take 1 tablet by ORAL route as directed for 5 days Day 1 - take two (2) tablets one time. Day 2, 3, 4 , 5 take one (1) tablet once daily.; 6 tablet. - Medication Reconciliation Form, Thank You Letter, Antibiotic Education, Prescription Opioid Use form. - Follow up: Private Physician; When: 1 - 2 days; Reason: Worsening of condition, Recheck today's complaints, Continuance of care, Re-evaluation by your physician. - Problem is new. - Symptoms have improved. Signatures: Dispatcher [employer] EDND Edward Benjamin PA PA cp Bryson, James, RN RN jb4 Saad Collazo RN RN mg2 Manjinder Hester MD MD [email or web address] Corrections: (The following items were deleted from the chart) 11/20 23:19 11/19 23:10 Constitutional: The patient appears in no acute distress, alert, awake, cp non-diaphoretic, non-toxic, well developed, well nourished, cp 11/20 23:19 11/19 23:10 Head/Face: Normocephalic, atraumatic. cp cp 11/21 03:48 03:20 11/21/2020 03:20 Discharged to Home. Impression: Upper abdominal pain, jb4 unspecified; Coronavirus infection, unspecified. Condition is Stable. Forms are Medication Reconciliation Form, Thank You Letter, Antibiotic Education, Prescription Opioid Use. Follow up: Private Physician; When: 1 - 2 days; Reason: Worsening of condition, Recheck today's complaints, Continuance of care, Re-evaluation by your physician. Problem is new. Symptoms have improved. [email or web address]
--- NOTE | 2020-11-21 03:21 | ER ---
Nurse's Notes [facility] Name: Sonja Medellin Age: 50 yrs Sex: Female : 1970 Arrival Date: 11/20/2020 Time: 22:33 Bed 16 Private MD: Diagnosis: Upper abdominal pain, unspecified;Coronavirus infection, unspecified Presentation: 11/20 22:33 Chief complaint: EMS states: she has sudden onset of epigastric pain tonight while mg2 lying on the couch, tested covid positive 10 days ago at [facility]. Coronavirus screen: Client denies travel out of the [place] in the last 14 days. Client reports previous positive COVID test result. 10 days ago [facility]. Ebola Screen: No symptoms or risks identified at this time. Initial Sepsis Screen: Does the patient meet any 2 criteria? No. Patient's initial sepsis screen is negative. Does the patient have a suspected source of infection? No. Patient's initial sepsis screen is negative. Risk Assessment: Do you want to hurt yourself or someone else? Patient reports no desire to harm self or others. Onset of symptoms was November 20, 2020. 22:33 Method Of Arrival: EMS: [facility] [place] Acuity: CRISELDA 3 mg2 Historical: - Allergies: 22:38 No Known Allergies; mg2 - Home Meds: 22:38 Lipitor 40 mg Oral tab 1 tab once daily [Active]; Atenolol Oral [Active]; mg2 - PMHx: 22:38 Anxiety; CVA; Depression; Hyperlipidemia; mg2 - PSHx: 22:38 Hysterectomy; Cholecystectomy; mg2 - Immunization history:: Flu vaccine status is unknown. - Social history:: Smoking status: Patient denies any tobacco usage or history of. Patient/guardian denies using alcohol, street drugs, IV drugs. Screenin:35 Abuse screen: Denies threats or abuse. Nutritional screening: No deficits noted. jb4 Tuberculosis screening: No symptoms or risk factors identified. Fall Risk None identified. Assessment: 22:35 General: Appears in no apparent distress. uncomfortable, Behavior is calm, cooperative, jb4 appropriate for age. Pain: Complains of pain in epigastric area Pain does not radiate. Pain currently is 0 out of 10 on a pain scale. at worst was 10 out of 10 on a pain scale. Quality of pain is described as sharp, stabbing. Neuro: Level of Consciousness is awake, alert, obeys commands, Oriented to person, place, time, situation. Cardiovascular: Patient's skin is warm and dry. Respiratory: Airway is patent Respiratory effort is even, unlabored, Respiratory pattern is regular, symmetrical. GI: Abdomen is flat, non-distended, Reports epigastric pain. : No signs and/or symptoms were reported regarding the genitourinary system. EENT: No signs and/or symptoms were reported regarding the EENT system. Derm: Skin is intact, Skin is pink, warm \T\ dry. Musculoskeletal: Circulation, motion, and sensation intact. Range of motion: intact in all extremities. 23:30 Reassessment: Patient appears in no apparent distress at this time. Patient and/or jb4 family updated on plan of care and expected duration. Pain level reassessed. Patient is alert, oriented x 3, equal unlabored respirations, skin warm/dry/pink. 11/21 00:30 Reassessment: Patient appears in no apparent distress at this time. Patient and/or jb4 family updated on plan of care and expected duration. Pain level reassessed. Patient is alert, oriented x 3, equal unlabored respirations, skin warm/dry/pink. 01:28 Reassessment: Patient appears in no apparent distress at this time. Patient and/or jb4 family updated on plan of care and expected duration. Pain level reassessed. Patient is alert, oriented x 3, equal unlabored respirations, skin warm/dry/pink. 02:00 Reassessment: Patient appears in no apparent distress at this time. Patient and/or jb4 family updated on plan of care and expected duration. Pain level reassessed. Patient is alert, oriented x 3, equal unlabored respirations, skin warm/dry/pink. 03:00 Reassessment: Patient appears in no apparent distress at this time. Patient and/or jb4 family updated on plan of care and expected duration. Pain level reassessed. Patient is alert, oriented x 3, equal unlabored respirations, skin warm/dry/pink. 03:30 Reassessment: Patient appears in no apparent distress at this time. Patient and/or jb4 family updated on plan of care and expected duration. Pain level reassessed. Patient is alert, oriented x 3, equal unlabored respirations, skin warm/dry/pink. Vital Signs: 11/20 22:33 BP 103 / 66; Pulse 91; Resp 18; Temp 97.1; Pulse Ox 98% on R/A; Weight 86.18 kg; Height mg2 5 ft. 4 in. (162.56 cm); Pain 9/10; 23:35 BP 128 / 76; Pulse 75; Resp 16; Pulse Ox 98% on R/A; jb4 11/21 00:30 BP 127 / 86; Pulse 88; Resp 18; Pulse Ox 100% on R/A; jb4 01:28 BP 108 / 74; Pulse 89; Resp 16; Pulse Ox 97% on R/A; jb4 02:00 BP 98 / 66; Pulse 93; Resp 16; Pulse Ox 97% on R/A; Pain 0/10; jb4 03:00 BP 104 / 78; Pulse 88; Resp 16; Pulse Ox 95% on R/A; jb4 11/20 22:33 Body Mass Index 32.61 (86.18 kg, 162.56 cm) mg2 ED Course: 11/20 22:33 Patient arrived in ED. am2 22:33 Edward Benjamin PA is PHCP. cp 22:33 Manjinder Hester MD is Attending Physician. cp 22:35 Patient has correct armband on for positive identification. Bed in low position. Call jb4 light in reach. Side rails up X 1. 22:36 Triage completed. mg2 22:38 Arm band placed on. mg2 22:43 Rony Hernandez, RN is Primary Nurse. jb4 23:52 XRAY Chest (1 view) In Process Unspecified. EDMS 11/21 00:28 CT Aorta for Dissection In Process Unspecified. EDMS 03:47 No provider procedures requiring assistance completed. IV discontinued, intact, jb4 bleeding controlled, No redness/swelling at site. Pressure dressing applied. Administered Medications: 11/20 22:50 Drug: NS 0.9% 1000 ml Route: IV; Rate: 1 bolus; Site: right antecubital; jb4 11/21 00:00 Follow up: Response: No adverse reaction; IV Status: Completed infusion; IV Intake: jb4 1000ml 11/20 22:51 Drug: Zofran (Ondansetron) 4 mg Route: IVP; Site: right antecubital; jb4 23:20 Follow up: Response: No adverse reaction; Nausea is decreased jb4 22:51 Drug: Pepcid 20 mg Route: IVP; Site: right antecubital; jb4 23:20 Follow up: Response: No adverse reaction jb4 22:53 Drug: GI Cocktail without - (Maalox Suspension 30 ml, Lidocaine Liquid 2 % 15 jb4 ml) Route: PO; 23:20 Follow up: Response: No adverse reaction; Pain is decreased jb4 11/21 01:00 Drug: Zofran (Ondansetron) 4 mg Route: IVP; Site: right antecubital; mg2 01:28 Follow up: Response: No adverse reaction; Marked relief of symptoms; Nausea is decreasedjb4 01:27 Not Given (Patient Refused): morphine 2 mg IVP once; (PAIN>8) RASS on ADMN: Combtv4, jb4 Very Agttd3, Agttd2, Rstlss1, AlertClm0, Drwsy-1, LtSdtn-2, ModSdtn-3, DpSdtn-4, UnArsble-5 x2 Intake: 00:00 IV: 1000ml; Total: 1000ml. jb4 Outcome: 03:20 Discharge ordered by . 7 03:47 Discharged to home ambulatory. jb4 03:47 Condition: stable 03:47 Discharge instructions given to patient, Instructed on discharge instructions, follow up and referral plans. medication usage, Demonstrated understanding of instructions, follow-up care, medications, Prescriptions given X 4. 03:48 Patient left the ED. jb4 Signatures: Dispatcher [employer] EDMS Edward Benjamin PA PA cp Bryson, James RN RN jb4 Megan Samaniego Michele, RN RN mg2 Holmes, Maurice, MD MD 7 Corrections: (The following items were deleted from the chart) 03:48 03:48 Response: No adverse reaction; IV Status: Completed infusion; IV Intake: 1000ml jb4 jb4
[2020-11-21 03:54] VITALS: TEMP 97.1
[2020-11-21 04:00] VITALS: BP 104/78; O2SAT 95
--- NOTE | 2020-11-21 08:20 | RAD REPORT ---
EXAM DESCRIPTION: Suzie Single View11/20/2020 11:52 pm CLINICAL HISTORY: Epigastric pain COMPARISON: 2019 FINDINGS: Mild bibasilar lung opacities. Main lungs are clear. The heart is normal size IMPRESSION: Mild bibasilar lung opacities may represent mild pneumonia
--- NOTE | 2020-11-21 21:02 | RAD REPORT ---
EXAM DESCRIPTION: CT - Angio Aorta For Dissection - 11/21/2020 7:13 am CLINICAL HISTORY: Epigastric pain/back pain COMPARISON: None. TECHNIQUE: CT CHEST ABDOMEN PELVIS ANGIOGRAPHY WITH IV CONTRAST on 11/20/2020 11:37 PM RN URGENT CARE. MIPS brittany nstructions were generated. This exam was performed according to our departmental dose-optimization program, which includes autom ated exposure control, adjustment of the mA and/or kV according to patient size and/or use of iterati ve reconstruction technique. FINDINGS: Vascular: Mid ascending thoracic aorta measures 3.9 cm. There is no dissection. The main p ulmonary artery is dilated to 3.7 cm. There are no acute or chronic filling defects. Abdominal aorta is normal in course and caliber without aneurysm. Pelvic arteries are patent without aneurysm or occl usion. Chest: The heart is normal in size. There is evidence of interatrial septum defect closure. There is no pericardial effusion. Intrathoracic lymph nodes are not enlarged. There is no pleural effusion, pleural thickening or pneumothorax. Central airways are patent. There a re minimal peripheral somewhat rounded groundglass opacities, mostly in the lower lobes. Abdomen: The liver is normal in appearance. There is no biliary dilatation. Cholecystectomy was perfo rmed. The pancreas and spleen are normal in appearance. The adrenal glands and kidneys are unremarkab le. There is no free air. There is no retroperitoneal adenopathy. Pelvis: There is no bowel obstruction. Urinary bladder is unremarkable. There is no free fluid. Hyste rectomy was performed. Appendix is normal. Skeleton: There are no acute osseous findings. No suspicious bony lesions. IMPRESSION: No aortic dissection or aneurysm. Dilated main pulmonary artery without definite pulmonary emboli. Minimal bibasilar presumed pneumonia. Electronically signed by: Amor Odonnell MD 11/21/2020 12:36 AM RN URGENT CARE Due to temporary technical issues with the PACS/Fluency reporting system, reports are being signed by the in house radiologists without review as a courtesy to insure prompt reporting. The interpreting radiologist is fully responsible for the content of the report.
== END 2020-11-21 03:48 | disposition home or self-care (01) ==
LOC: ER 22:25
DX: U07.1 COVID-19 (principal); E78.5 Hyperlipidemia, unspecified; F41.8 Other specified anxiety disorders
CPT/HCPCS: 96361; 93005; 85025; 80048; 36415; 80076; 84484; 83690; 71275; 74175; 71045; 96375; 96374; 99284; Q9967; J7030; J2405 ×2; J2270

== ENCOUNTER 2022-05-26 11:00 | Emergency (ER) | payer OTHER ==
[2022-05-26] MEDS ORDERED: METHYLPREDNISOLONE 125 MG INJ ONE (12:41)
[2022-05-26] MEDS ORDERED: NA CHLORIDE 0.9% 500 ML ONE (12:42)
[2022-05-26] MEDS ORDERED: DIPHENHYDRAMINE 50 MG/ML VIAL ONE (12:42)
[2022-05-26] MEDS ORDERED: FAMOTIDINE 20 MG/2 ML VIAL IV ONE (12:42)
[2022-05-26 13:08] LABS: Absolute Lymphocytes (CBC) 1.4 K/uL (0.7-4.9); Hematocrit 40.6 % (36.0-45.0); Lymphocytes % 17.1 % (15.3-44.8); MPV 8.4 fL (7.6-11.3); RBC Red Blood Cell Count 4.37 M/uL (3.86-4.86)
[2022-05-26 13:30] LABS: Potassium 3.9 mmol/L (3.5-5.1)
[2022-05-26] MEDS ORDERED: LORazepam 2 MG/ML VIAL ONE (13:39)
--- NOTE | 2022-05-26 14:21 | EDPHYS ---
Physician Documentation [facility] Name: Sonja Medellin Age: 52 yrs Sex: Female : 1970 Arrival Date: 05/26/2022 Time: 11:02 Bed 9 Private MD: ED Physician Edward Lobato HPI: 05/26 12:20 This 52 yrs old Female presents to ER via Ambulatory with complaints of Allergic cp Reaction, Rash - poison gilberto. 12:20 The patient presents with diffuse swelling, itching, rash, that is diffuse, redness of cp skin. Onset: The symptoms/episode began/occurred 2 week(s) ago. 12:20 Associated signs and symptoms: Pertinent negatives: chest pain, dysphagia, fever, cp headache, vomiting. Possible causes: poison gilberto. At home the patient or guardian has treated the symptoms with Benadryl. Severity of symptoms: in the emergency department the symptoms are worse moderately. 12:20 Patient reports noticing swelling around eyes, neck swelling, forearms and lower cp abdomen. Recently finished dose timoteo of steroids. 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 - Social history:: Smoking status: Patient/guardian denies using tobacco products. ROS: 12:30 Constitutional: Negative for body aches, chills, fever, poor PO intake. cp 12:30 ENT: Negative for drainage from ear(s), ear pain, sore throat, difficulty swallowing, cp difficulty handling secretions. 12:30 Cardiovascular: Negative for chest pain, palpitations. 12:30 Respiratory: Negative for cough, shortness of breath, wheezing. 12:30 Abdomen/GI: Negative for abdominal pain, vomiting, diarrhea, constipation. 12:30 Neuro: Negative for altered mental status, headache, numbness, weakness. 12:30 All other systems are negative. Exam: 12:35 Constitutional: The patient appears in no acute distress, alert, awake, cp non-diaphoretic, non-toxic, well developed, well nourished, uncomfortable. 12:35 Head/Face: Normocephalic, atraumatic. cp 12:35 Eyes: Periorbital structures: appear normal, Conjunctiva: normal, no exudate, no injection, Sclera: no appreciated abnormality, Lids and lashes: appear normal, bilaterally. 12:35 ENT: External ear(s): are unremarkable, Nose: is normal, Mouth: Lips: moist, Oral mucosa: pink and intact, moist, Posterior pharynx: Airway: no evidence of obstruction, patent, Tonsils: are normal in appearance, swelling, is not appreciated, erythema, is not appreciated, exudate, is not appreciated, Voice: is normal. 12:35 Neck: ROM/movement: is normal, is supple, without pain, no range of motions limitations. 12:35 Chest/axilla: Inspection: normal. 12:35 Cardiovascular: Rate: normal, Rhythm: regular, Edema: is not appreciated, JVD: is not appreciated. 12:35 Respiratory: the patient does not display signs of respiratory distress, Respirations: normal, no use of accessory muscles, no retractions, labored breathing, is not present, Breath sounds: are clear throughout, no decreased breath sounds, no stridor, no wheezing. 12:35 Abdomen/GI: Inspection: mild swelling and erythema noted lower abdomen. 12:35 Skin: rash can be described as urticarial, and is diffusely located. 12:35 Neuro: Orientation: to person, place \T\ time. Mentation: is normal, Motor: moves all fours, strength is normal, Sensation: is normal. Vital Signs: 11:19 BP 122 / 79; Pulse 76; Resp 18; Temp 97.6(TE); Pulse Ox 100% on R/A; Weight 87.54 kg bm7 (R); Height 5 ft. 5 in. (165.10 cm); Pain 0/10; 11:19 Body Mass Index 32.12 (87.54 kg, 165.10 cm) bm7 MDM: 11:53 Patient medically screened. cp 12:30 Differential diagnosis: anaphylaxis, angioedema, urticaria. cp 14:20 Data reviewed: vital signs, nurses notes, lab test result(s). cp 14:20 Counseling: I had a detailed discussion with the patient and/or guardian regarding: the cp historical points, exam findings, and any diagnostic results supporting the discharge/admit diagnosis, lab results, the need for outpatient follow up, an allergy/assistive technology specialist, a hvac tech, to return to the emergency department if symptoms worsen or persist or if there are any questions or concerns that arise at home. Response to treatment: the patient's symptoms have markedly improved after treatment, and as a result, I will discharge patient. 05/26 12:14 Order name: CBC with Diff; Complete Time: 13:52 cp 05/26 12:14 Order name: BMP; Complete Time: 13:52 cp 05/26 12:14 Order name: IV; Complete Time: :52 cp Administered Medications: 12:40 Drug: SOLU-Medrol (methylPrednisoLONE) 125 mg Route: IVP; Site: right antecubital; iw 13:00 Follow up: Response: No adverse reaction iw 12:52 Drug: Pepcid (famotidine) 20 mg Route: IVP; Site: right antecubital; bm7 13:15 Follow up: Response: No adverse reaction iw 12:52 Drug: Benadryl (diphenhydrAMINE) 50 mg Route: IVP; Site: right antecubital; bm7 13:15 Follow up: Response: No adverse reaction iw 12:52 Drug: NS 0.9% 500 ml Route: IV; Rate: 500 ml/hr; Site: right antecubital; bm7 13:30 Follow up: IV Status: Completed infusion iw 13:37 Drug: Ativan (LORazepam) 0.5 mg Route: IVP; Site: right antecubital; iw 14:10 Follow up: Response: No adverse reaction iw Disposition Summary: 05/26/22 14:20 Discharge Ordered Location: Home cp Problem: an ongoing problem cp Symptoms: have improved cp Condition: Stable cp Diagnosis - Allergic urticaria cp Followup: cp - With: Esteban Esparza MD - When: 2 - 3 days - Reason: Recheck today's complaints Discharge Instructions: - Discharge Summary Sheet cp - Hives cp - Allergy Skin Testing cp Forms: - Medication Reconciliation Form cp - Thank You Letter cp - Antibiotic Education cp - Prescription Opioid Use cp Prescriptions: - Vistaril 50 mg Oral capsule - take 1 capsule by ORAL route 4 times per day As needed; 30 capsule; Refills: 0, cp Product Selection Permitted - Pepcid 20 mg Oral Tablet - take 1 tablet by ORAL route every 12 hours for 10 days; 20 tablet; Refills: 0, cp Product Selection Permitted - Prednisone 20 mg Oral Tablet - take 2 tablet by ORAL route once daily for 5 days then 1 tablet daily for 3 cp days, then 1/2 tablet daily for 2 days; 14 tablet; Refills: 0, Product Selection Permitted Signatures: Dispatcher [employer] Pauline Pedraza, RN RN iw Edward Benjamin PA PA aTtianna Gutierrez, RN RN bm7
--- NOTE | 2022-05-26 14:21 | ER ---
Nurse's Notes [facility] Name: Sonja Medellin Age: 52 yrs Sex: Female : 1970 Arrival Date: 05/26/2022 Time: 11:02 Bed 9 Private MD: Diagnosis: Allergic urticaria Presentation: 05/26 11:20 Chief complaint: Patient states: I went to see Kyra HAILE this morning and she bm7 said I am having a severe reaction to poison gilberto and to come here to be seen. Coronavirus screen: At this time, the client does not indicate any symptoms associated with coronavirus-19. Ebola Screen: No symptoms or risks identified at this time. Onset: The symptoms/episode began/occurred 2 week(s) ago. Anaphylaxis evaluation, no signs or symptoms of anaphylaxis were noted. Initial Sepsis Screen: Does the patient meet any 2 criteria? No. Patient's initial sepsis screen is negative. Does the patient have a suspected source of infection? No. Patient's initial sepsis screen is negative. Risk Assessment: Do you want to hurt yourself or someone else? Patient reports no desire to harm self or others. Onset of symptoms is unknown. Care prior to arrival: None. 11:20 Method Of Arrival: Ambulatory 7 11:20 Acuity: CRISELDA 4 bm7 12:30 Acuity: CRISELDA 3 iw Triage Assessment: 11:22 General: Appears in no apparent distress. uncomfortable, Behavior is calm, cooperative, bm7 anxious. Pain: Denies pain. EENT: No deficits noted. No signs and/or symptoms were reported regarding the EENT system. Neuro: No deficits noted. Cardiovascular: No deficits noted. Respiratory: No deficits noted. GI: No deficits noted. : No deficits noted. No signs and/or symptoms were reported regarding the genitourinary system. Derm: Skin is intact, is healthy with good turgor, Skin is dry, Skin is normal, Skin temperature is warm Rash noted that is itchy, on back, abdomen, right arm, left arm, right leg and left leg. Musculoskeletal: No deficits noted. No signs and/or symptoms reported regarding the musculoskeletal system. 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 - Social history:: Smoking status: Patient/guardian denies using tobacco products. Screenin:36 Abuse screen: Denies threats or abuse. Denies injuries from another. Nutritional iw screening: No deficits noted. Tuberculosis screening: No symptoms or risk factors identified. Fall Risk None identified. Assessment: 13:00 Respiratory: Airway is patent Respiratory effort is even, unlabored, Breath sounds are iw clear bilaterally. 14:36 Reassessment: Patient appears in no apparent distress at this time. Patient and/or iw family updated on plan of care and expected duration. Pain level reassessed. Patient is alert, oriented x 3, equal unlabored respirations, skin warm/dry/pink. Vital Signs: 11:19 BP 122 / 79; Pulse 76; Resp 18; Temp 97.6(TE); Pulse Ox 100% on R/A; Weight 87.54 kg bm7 (R); Height 5 ft. 5 in. (165.10 cm); Pain 0/10; 11:19 Body Mass Index 32.12 (87.54 kg, 165.10 cm) bm7 ED Course: 11:02 Patient arrived in ED. as 11:19 Arm band placed on left wrist. 7 11:22 Triage completed. 7 11:43 Pauline Rowe, RODOLFO is Primary Nurse. iw 11:50 Edward Benjamin PA is PHCP. cp 11:50 Edward Lobato MD is Attending Physician. cp 12:52 Initial lab(s) drawn, by ms, sent to lab. Inserted saline lock: 20 gauge in right bm7 antecubital area, using aseptic technique. Blood collected. 13:00 Patient has correct armband on for positive identification. iw 14:20 Esteban Esparza MD is Referral Physician. cp 14:36 No provider procedures requiring assistance completed. IV discontinued, intact, iw bleeding controlled, No redness/swelling at site. Pressure dressing applied. Administered Medications: 12:40 Drug: SOLU-Medrol (methylPrednisoLONE) 125 mg Route: IVP; Site: right antecubital; iw 13:00 Follow up: Response: No adverse reaction iw 12:52 Drug: Pepcid (famotidine) 20 mg Route: IVP; Site: right antecubital; bm7 13:15 Follow up: Response: No adverse reaction iw 12:52 Drug: Benadryl (diphenhydrAMINE) 50 mg Route: IVP; Site: right antecubital; bm7 13:15 Follow up: Response: No adverse reaction iw 12:52 Drug: NS 0.9% 500 ml Route: IV; Rate: 500 ml/hr; Site: right antecubital; bm7 13:30 Follow up: IV Status: Completed infusion iw 13:37 Drug: Ativan (LORazepam) 0.5 mg Route: IVP; Site: right antecubital; iw 14:10 Follow up: Response: No adverse reaction iw Medication: 13:00 VIS not applicable for this client. iw Outcome: 14:20 Discharge ordered by MD. cp 14:35 Patient left the ED. iw 14:36 Discharged to home ambulatory, with family. iw 14:36 Condition: good 14:36 Discharge instructions given to patient, family, Instructed on discharge instructions, follow up and referral plans. medication usage, Demonstrated understanding of instructions, follow-up care, medications, Prescriptions given X 3. Signatures: Delphine Echols Irene, RN RN iw Edward Benjamin PA PA cp McCarthy, Brittany, RN RN bm7
[2022-05-26 15:46] VITALS: BP 122/79; TEMP 97.6; O2SAT 100
== END 2022-05-26 14:35 | disposition home or self-care (01) ==
LOC: ER 11:00
DX: L50.0 Allergic urticaria (principal); E78.5 Hyperlipidemia, unspecified; F32.A Depression, unspecified; F41.9 Anxiety disorder, unspecified; Z79.82 Long term (current) use of aspirin; Z86.73 Personal history of transient ischemic attack (TIA), and cerebral infarction without residual deficits
CPT/HCPCS: 96361; 85025; 80048; 36415; 96375; 96374; 99284; J1200; J7040; J2930; J3490